=== PATIENT | male | born 2000 | race Caucasian/White ===

== ENCOUNTER → 2023-11-04 | Outpatient (REF) | payer OTHER ==
[2023-11-04 09:43] LABS: SEMEN APPEARANCE OPAQUE (OPAQUE); SEMEN VISCOSITY LIQUID (LIQUID); WBC CONCENTRATION <=1 M/ml (<=1 M/ml)
[2023-11-04 09:44] LABS: SPERM CONCENTRATION 43.2 M/ml (>=15.0)
== END ==
LOC: M LAB REF 09:39
PROVIDERS: ATTEND Obstetrics & Gynecology
DX: N46.8 Other male infertility (principal)

== ENCOUNTER → 2023-12-21 | Outpatient (CLI) | payer OTHER ==
[~2023-12-21] MED LIST: ISOVUE-300 61% 100ML VIAL As Ordered ONE; LIDOCAINE 1% MDV 20ML VIAL As Ordered ONE; PROHANCE 279.3MG/ML 5ML VIAL As Ordered ONE
== END ==
LOC: M RAD 06:45
PROVIDERS: ATTEND Physician Assistant
DX: M25.511 Pain in right shoulder (principal)
CPT/HCPCS: 23350; 73223; 77002; A9576; Q9967

== ENCOUNTER → 2023-12-27 | Outpatient (REF) | payer OTHER | LOC: M RAD 09:52 | PROVIDERS: ATTEND Internal Medicine | DX: R52 Pain, unspecified (principal); R06.02 Shortness of breath ==

== ENCOUNTER 2024-04-26 21:42 | Emergency (ER) | payer OTHER ==
[~2024-04-26] VITALS: Ht 182.9 cm; Wt 139.7 kg
[2024-04-27] MEDS ORDERED: METH-1165 PO (01:35)
[2024-04-27] MEDS ORDERED: NAPR-837 PO (01:35)
[2024-04-27] MEDS: methocarbamoL 750 MG TAB PO ONE (01:46)
[2024-04-27] MEDS: NAPROXEN 250 MG TAB PO ONE (01:48)
[2024-04-27 01:49] VITALS: BP 135/79; TEMP 97.8; O2SAT 97
[2024-04-27] MEDS: OXYCODONE/APAP 5MG/325MG(HOME DOSE PACK) PO ONE (01:49)
== END 2024-04-27 01:54 | disposition home or self-care (01) ==
LOC: M ED 21:42
DX: M54.50 Low back pain, unspecified (principal); M54.16 Radiculopathy, lumbar region; F17.290 Nicotine dependence, other tobacco product, uncomplicated; M43.06 Spondylolysis, lumbar region

== ENCOUNTER 2025-04-24 11:50 | Emergency (ER) | payer OTHER ==
[~2025-04-24] VITALS: Ht 182.9 cm; Wt 118.6 kg
[~2025-04-24 11:50] MED LIST changes: -ISOVUE-300 61% 100ML VIAL As Ordered ONE; -LIDOCAINE 1% MDV 20ML VIAL As Ordered ONE; +METH-1165 PO; +NAPR-837 PO; -PROHANCE 279.3MG/ML 5ML VIAL As Ordered ONE
[2025-04-24] MEDS ORDERED: TIRZ15PE3 (12:13)
[2025-04-24] MEDS ORDERED: GABA-1490 (12:13)
[2025-04-24] MEDS ORDERED: VENL150C43 (12:13)
[2025-04-24] MEDS ORDERED: CELE1CAP99 (12:13)
[2025-04-24] MEDS: KETOROLAC 30 MG/ML 1 ML VIAL IV ONE (13:31)
[2025-04-24] MEDS ORDERED: KETO-204 PO (17:24)
[2025-04-24 17:47] VITALS: BP 147/68; TEMP 97.2; O2SAT 99
== END 2025-04-24 17:49 | disposition home or self-care (01) ==
LOC: M ED 11:50
DX: G89.29 Other chronic pain (principal); M54.50 Low back pain, unspecified
CPT/HCPCS: 72148; 96374; 99284; J1885

== ENCOUNTER → 2025-07-06 | Outpatient (CLI) | payer OTHER ==
[~2025-07-06] MED LIST changes: +CELE1CAP99; +GABA-1490; +KETO-204 PO; +TIRZ15PE3; +VENL150C43
== END ==
LOC: M RAD 11:12
PROVIDERS: ATTEND Neurological Surgery
DX: M43.10 Spondylolisthesis, site unspecified (principal)

== ENCOUNTER → 2025-08-22 | Outpatient (CLI) | payer OTHER | LOC: M RAD 07:20 | PROVIDERS: ATTEND Neurological Surgery | DX: M54.14 Radiculopathy, thoracic region (principal); M43.10 Spondylolisthesis, site unspecified; M40.204 Unspecified kyphosis, thoracic region ==